=== PATIENT | male | born 1980 | race Native Hawaiian/Other Pacific Islander ===

== ENCOUNTER 2021-06-28 00:30 | Emergency (ER) | payer OTHER ==
[~2021-06-28] VITALS: Ht 182.9 cm; Wt 157.9 kg
[2021-06-28 00:35] VITALS: BP 152/106; TEMP 99.2
== END 2021-06-28 00:56 | disposition home or self-care (01) ==
LOC: ED 00:30
DX: Z53.21 Procedure and treatment not carried out due to patient leaving prior to being seen by health care provider (principal)
CPT/HCPCS: 99281

== ENCOUNTER 2021-07-01 01:15 | Emergency (ER) | payer OTHER ==
[~2021-07-01] VITALS: Ht 182.9 cm; Wt 157.9 kg
[2021-07-01] MEDS ORDERED: METHYLPRED4 M1 (01:39)
[2021-07-01 03:00] VITALS: BP 161/83; TEMP 99.8
== END 2021-07-01 03:00 | disposition home or self-care (01) ==
LOC: ED 01:15
DX: J06.9 Acute upper respiratory infection, unspecified (principal); U07.1 COVID-19; R50.9 Fever, unspecified; F17.220 Nicotine dependence, chewing tobacco, uncomplicated
CPT/HCPCS: 87502; 87651; 96372; 99283; J1100; J2405

== ENCOUNTER 2021-07-02 18:29 | Emergency (ER) | payer OTHER ==
[~2021-07-02] VITALS: Ht 182.9 cm; Wt 152.0 kg
[~2021-07-02 18:29] MED LIST: METHYLPRED4 M1
[2021-07-02 18:39] VITALS: TEMP 98.4
[2021-07-02 20:00] VITALS: BP 168/88
== END 2021-07-02 20:10 | disposition home or self-care (01) ==
LOC: ED 18:29
DX: U07.1 COVID-19 (principal); G47.09 Other insomnia
CPT/HCPCS: 99282

== ENCOUNTER 2021-07-03 08:15 | Emergency (ER) | payer OTHER ==
[~2021-07-03] VITALS: Ht 182.9 cm; Wt 152.0 kg
[2021-07-03 08:21] VITALS: BP 116/76; TEMP 102
== END 2021-07-03 09:24 | disposition home or self-care (01) ==
LOC: ED 08:15
DX: U07.1 COVID-19 (principal); J06.9 Acute upper respiratory infection, unspecified; R50.9 Fever, unspecified; F17.220 Nicotine dependence, chewing tobacco, uncomplicated
CPT/HCPCS: 93005; 99283

== ENCOUNTER 2023-02-27 14:08 | Outpatient (CLI) | payer OTHER ==
[2023-02-27 14:35] LABS: PLATELET COUNT 264 K/uL (142-355)
== END 2023-02-27 19:53 | disposition home or self-care (01) ==
LOC: LABW 14:08
PROVIDERS: ATTEND Nurse Practitioner
DX: D75.1 Secondary polycythemia (principal); R79.89 Other specified abnormal findings of blood chemistry
CPT/HCPCS: 36415; 82728; 85027